=== PATIENT | female | born 1995 | race African-American/Black ===

== ENCOUNTER 2020-03-07 13:34 | Emergency (ER) | payer MEDICAID | END 2020-03-07 13:45 | disposition left against medical advice (07) | LOC: ER 13:34 | DX: S99.922A Unspecified injury of left foot, initial encounter (principal); Z53.21 Procedure and treatment not carried out due to patient leaving prior to being seen by health care provider; X58.XXXA Exposure to other specified factors, initial encounter; Y93.89 Activity, other specified; Y92.89 Other specified places as the place of occurrence of the external cause; Y99.8 Other external cause status ==

== ENCOUNTER 2022-05-18 05:56 | Inpatient (IN) | payer MEDICAID ==
[~2022-05-18] VITALS: Ht 154.9 cm; Wt 77.8 kg
[2022-05-18] VITALS (14 sets, daily range): BP systolic 92–122; BP diastolic 32–59
[2022-05-18 08:01] LABS: Basophils # (auto) 0 10 ^3/uL (0-0.2); Eosinophils # (auto) 0 10 ^3/uL (0-0.8); Hematocrit 10.2 % (36.0-46.0); Lymphocytes # (auto) 1.3 10 ^3/uL (0.4-5.4); Mean Corpuscular Hemoglobin 18.4 pg (28.0-32.0); Mean Corpuscular Volume 63.4 fL (80.0-100.0); Nucleated Red Blood Cells % 0.3 %; Red Blood Cells 1.61 10^6/uL (4.0-5.20)
[2022-05-18 08:04] LABS: Basophils % (auto) 0.9 % (0.0-2.0); Lymphocytes % (auto) 34.1 % (10.0-50.0); Monocytes # (auto) 0.4 10 ^3/uL (0-1.3); Monocytes % (auto) 9.3 % (0.0-12.0); Neutrophils # (auto) 2.2 10 ^3/uL (1.6-8.6); Neutrophils % (auto) 55.7 % (37.0-80.0); White Blood Cell 3.9 10^3/uL (4.4-10.8)
[2022-05-18 08:11] LABS: Red Cell Distribution Width 34.8 % (11.8-14.3)
[2022-05-18 08:18] LABS: Chloride 108 mmol/L (98-107); Potassium 3.5 mmol/L (3.5-5.1); Sodium 137 mmol/L (136-145)
[2022-05-18 08:22] LABS: Alanine Aminotransferase < 6 U/L (13-56); Albumin 3.4 g/dL (3.4-5.0); Anion Gap 10 (5-15); BUN/Creatinine Ratio 8.2; Blood Urea Nitrogen 5 mg/dL (7-18); Carbon Dioxide 19 mmol/L (21-32); GFR African American 152 mL/min; GFR Non-African American 126 mL/min; Glucose 97 mg/dL (74-106)
[2022-05-18 08:29] LABS: Alkaline Phosphatase 53 U/L (45-117); Aspartate Aminotransferase 5 U/L (15-37); Bilirubin, Total 1.1 mg/dL (0.2-1.0); Total Protein 6.7 g/dL (6.4-8.2)
[2022-05-18 09:59] LABS: Urine WBC None Seen /hpf (0 - 5)
[2022-05-18 10:22] LABS: Urine Bacteria NONE SEEN /hpf (None Seen); Urine Blood 3+ /uL (Negative); Urine Mucus FEW (None Seen); Urine Specific Gravity 1.008 (1.001-1.035)
[2022-05-18] MEDS ORDERED: DOCUSATE SOD 100 MG CAP PO PRN ×2 (11:15→13:00)
[2022-05-18] MEDS: FERROUS SULFATE 325mg EC TAB PO SCH ×2 (12:18→22:49)
[2022-05-18] MEDS ORDERED: POTASSIUM EFFERVESENT TAB 25 MEQ PO ONE (13:00)
[2022-05-18] MEDS ORDERED: ACETAMINOPHEN 325 MG TAB PO PRN (13:00)
[2022-05-18] MEDS: SODIUM CHLOR 0.9% PF (SALINE LOCK) 10ML VIAL/SYR IV SCH ×2 (14:06→22:59)
[2022-05-18 19:06] LABS: % Iron Saturation 92.3 % (15-50)
[2022-05-19 00:16] LABS: Hematocrit 20.5 % (36.0-46.0)
[2022-05-19 00:20] LABS: Hemoglobin 6.7 g/dL (12.2-16.2)
[2022-05-19 04:28] LABS: Basophils # (auto) 0 10 ^3/uL (0-0.2); Neutrophils # (auto) 1.7 10 ^3/uL (1.6-8.6); White Blood Cell 4.3 10^3/uL (4.4-10.8)
[2022-05-19 04:30] LABS: Basophils % (auto) 1.1 % (0.0-2.0); Eosinophils # (auto) 0 10 ^3/uL (0-0.8); Eosinophils % (auto) 0.6 % (0.0-7.0); Hematocrit 20.1 % (36.0-46.0); Lymphocytes # (auto) 2.2 10 ^3/uL (0.4-5.4); Lymphocytes % (auto) 51.2 % (10.0-50.0); Mean Corpuscular Hemoglobin 24.4 pg (28.0-32.0); Mean Corpuscular Hgb Conc. 32.4 g/dL (32.0-36.0); Mean Corpuscular Volume 75.3 fL (80.0-100.0); Monocytes # (auto) 0.3 10 ^3/uL (0-1.3); Monocytes % (auto) 7.3 % (0.0-12.0); Neutrophils % (auto) 39.8 % (37.0-80.0); Nucleated Red Blood Cells % 0.2 %; Red Blood Cells 2.67 10^6/uL (4.0-5.20)
[2022-05-19 04:43] LABS: % Iron Saturation 92.8 % (15-50)
[2022-05-19 04:50] LABS: Red Cell Distribution Width 30.4 % (11.8-14.3)
[2022-05-19 04:51] LABS: Hemoglobin 6.5 g/dL (12.2-16.2)
[2022-05-19 04:52] LABS: Potassium 3.8 mmol/L (3.5-5.1)
[2022-05-19 05:02] LABS: BUN/Creatinine Ratio 18.4; Bilirubin, Total 1.7 mg/dL (0.2-1.0); CRP High Sensitivity 1.11 mg/dL (< 0.3); Pre Albumin 11.9 mg/dL (20.0-40.0); Total Protein 6.1 g/dL (6.4-8.2)
[2022-05-19] MEDS: SODIUM CHLOR 0.9% PF (SALINE LOCK) 10ML VIAL/SYR IV SCH ×3 (06:34→22:08)
[2022-05-19 08:39] VITALS: BP 104/56
[2022-05-19 08:58] VITALS: BP 102/53
[2022-05-19 10:19] VITALS: BP 102/53
[2022-05-19 11:04] VITALS: BP 146/76
[2022-05-19 14:30] VITALS: BP 102/53
[2022-05-19 14:42] LABS: Basophils # (auto) 0.1 10 ^3/uL (0-0.2); Hemoglobin 8.7 g/dL (12.2-16.2); Lymphocytes # (auto) 0.8 10 ^3/uL (0.4-5.4); Nucleated Red Blood Cells % 0.1 %; Red Blood Cells 3.49 10^6/uL (4.0-5.20); White Blood Cell 7.2 10^3/uL (4.4-10.8)
[2022-05-19 14:44] LABS: Basophils % (auto) 0.8 % (0.0-2.0); Eosinophils # (auto) 0 10 ^3/uL (0-0.8); Eosinophils % (auto) 0.6 % (0.0-7.0); Hematocrit 27.2 % (36.0-46.0); Lymphocytes % (auto) 11.6 % (10.0-50.0); Monocytes # (auto) 0.5 10 ^3/uL (0-1.3); Monocytes % (auto) 6.3 % (0.0-12.0); Neutrophils # (auto) 5.8 10 ^3/uL (1.6-8.6); Neutrophils % (auto) 80.7 % (37.0-80.0)
[2022-05-19 14:55] LABS: Red Cell Distribution Width 28.9 % (11.8-14.3)
[2022-05-19] MEDS: methylPREDNISolone SOD SUCC 125 MG/2 ML VL IV SCH (18:26)
[2022-05-19 19:34] LABS: Ferritin 23.1 ng/mL (10-322)
[2022-05-19 22:00] VITALS: BP 144/64
[2022-05-20] MEDS: methylPREDNISolone SOD SUCC 125 MG/2 ML VL IV SCH ×4 (00:07→23:17)
[2022-05-20] MEDS: ONDANSETRON HCL 4 MG/2 ML VIAL IV PRN ×4 (00:07→23:16)
[2022-05-20 05:00] VITALS: BP 103/48
[2022-05-20] MEDS: SODIUM CHLOR 0.9% PF (SALINE LOCK) 10ML VIAL/SYR IV SCH ×3 (06:24→21:13)
[2022-05-20 09:00] VITALS: BP 106/61
[2022-05-20 09:30] LABS: Folate (Folic Acid) 5.24 ng/mL (5.38-24)
[2022-05-20] MEDS ORDERED: ZOLPIDEM TARTRATE 5 MG TAB PO PRN (12:30)
[2022-05-20] MEDS ORDERED: PANTOPRAZOLE 40 MG/10 ML VIAL INJ IV ONE (12:30)
[2022-05-20 12:46] LABS: Hepatitis A Ab IgM Negative; Hepatitis B Core IgM Negative; Hepatitis C Antibody Negative (Negative)
[2022-05-20 13:00] VITALS: BP 117/58
[2022-05-20 16:38] VITALS: BP 113/42
[2022-05-20 22:00] VITALS: BP 120/67
[2022-05-21 05:00] VITALS: BP 101/58
[2022-05-21 05:05] LABS: Basophils # (auto) 0 10 ^3/uL (0-0.2); Eosinophils # (auto) 0 10 ^3/uL (0-0.8); Hemoglobin 7.8 g/dL (12.2-16.2); Lymphocytes # (auto) 0.2 10 ^3/uL (0.4-5.4); White Blood Cell 9.5 10^3/uL (4.4-10.8)
[2022-05-21 05:07] LABS: Basophils % (auto) 0.1 % (0.0-2.0); Hematocrit 24.1 % (36.0-46.0); Mean Corpuscular Hemoglobin 25.8 pg (28.0-32.0); Mean Corpuscular Hgb Conc. 32.2 g/dL (32.0-36.0); Mean Corpuscular Volume 80.2 fL (80.0-100.0); Monocytes # (auto) 0.4 10 ^3/uL (0-1.3); Monocytes % (auto) 3.9 % (0.0-12.0); Neutrophils # (auto) 8.9 10 ^3/uL (1.6-8.6); Red Blood Cells 3.01 10^6/uL (4.0-5.20)
[2022-05-21 05:19] LABS: INR 1.13 (0.9-1.15); Partial Thromboplastin Time 24.2 sec (24.6-33.4)
[2022-05-21] MEDS: SODIUM CHLOR 0.9% PF (SALINE LOCK) 10ML VIAL/SYR IV SCH ×3 (05:25→23:44)
[2022-05-21] MEDS: methylPREDNISolone SOD SUCC 125 MG/2 ML VL IV SCH ×4 (05:25→23:44)
[2022-05-21 05:26] LABS: BUN/Creatinine Ratio 12.5; Calcium 8.9 mg/dL (8.5-10.1); Potassium 4.3 mmol/L (3.5-5.1); Red Cell Distribution Width 27.9 % (11.8-14.3)
[2022-05-21 09:05] VITALS: BP 106/57
[2022-05-21] MEDS: PANTOPRAZOLE 40 MG/10 ML VIAL INJ IV SCH (09:50)
[2022-05-21 16:27] VITALS: BP 108/43
[2022-05-21 22:00] VITALS: BP 122/78
[2022-05-22 05:00] VITALS: BP_SYST 106; BP_SYST 117; BP_DIAS 57; BP_DIAS 63
[2022-05-22 05:10] LABS: Basophils # (auto) 0 10 ^3/uL (0-0.2); Eosinophils # (auto) 0 10 ^3/uL (0-0.8); Lymphocytes # (auto) 0.3 10 ^3/uL (0.4-5.4); Monocytes # (auto) 0.4 10 ^3/uL (0-1.3); Nucleated Red Blood Cells % 0.1 %
[2022-05-22 05:16] LABS: Basophils % (auto) 0.2 % (0.0-2.0); Hematocrit 25.2 % (36.0-46.0); Hemoglobin 8.2 g/dL (12.2-16.2); Lymphocytes % (auto) 3.3 % (10.0-50.0); Mean Corpuscular Hemoglobin 25.7 pg (28.0-32.0); Mean Corpuscular Hgb Conc. 32.4 g/dL (32.0-36.0); Mean Corpuscular Volume 79.3 fL (80.0-100.0); Monocytes % (auto) 4.1 % (0.0-12.0); Neutrophils # (auto) 8.8 10 ^3/uL (1.6-8.6); Neutrophils % (auto) 92.4 % (37.0-80.0); Red Blood Cells 3.18 10^6/uL (4.0-5.20); White Blood Cell 9.6 10^3/uL (4.4-10.8)
[2022-05-22 05:19] LABS: Red Cell Distribution Width 29.6 % (11.8-14.3)
[2022-05-22] MEDS: methylPREDNISolone SOD SUCC 125 MG/2 ML VL IV SCH (05:52)
[2022-05-22] MEDS: SODIUM CHLOR 0.9% PF (SALINE LOCK) 10ML VIAL/SYR IV SCH ×3 (05:52→21:34)
[2022-05-22 09:19] VITALS: BP 109/59
[2022-05-22] MEDS: PANTOPRAZOLE 40 MG/10 ML VIAL INJ IV SCH (09:40)
[2022-05-22 13:00] VITALS: BP 108/58
[2022-05-22] MEDS: predniSONE 20 MG TAB PO SCH ×2 (14:00→21:34)
[2022-05-22 16:30] VITALS: BP 110/66
[2022-05-22 22:00] VITALS: BP 118/67
[2022-05-23 05:00] VITALS: BP 127/67
[2022-05-23 05:27] LABS: Basophils # (auto) 0 10 ^3/uL (0-0.2); Eosinophils # (auto) 0 10 ^3/uL (0-0.8); Hemoglobin 8.7 g/dL (12.2-16.2); Monocytes # (auto) 0.5 10 ^3/uL (0-1.3); Nucleated Red Blood Cells % 0.2 %
[2022-05-23 05:29] LABS: Basophils % (auto) 0.3 % (0.0-2.0); Lymphocytes # (auto) 1.1 10 ^3/uL (0.4-5.4); Lymphocytes % (auto) 9.6 % (10.0-50.0); Mean Corpuscular Hemoglobin 25.2 pg (28.0-32.0); Mean Corpuscular Volume 78.9 fL (80.0-100.0); Monocytes % (auto) 4.4 % (0.0-12.0); Neutrophils # (auto) 9.7 10 ^3/uL (1.6-8.6); Neutrophils % (auto) 85.7 % (37.0-80.0); Red Blood Cells 3.43 10^6/uL (4.0-5.20); White Blood Cell 11.3 10^3/uL (4.4-10.8)
[2022-05-23] MEDS: SODIUM CHLOR 0.9% PF (SALINE LOCK) 10ML VIAL/SYR IV SCH ×3 (06:18→22:00)
[2022-05-23] MEDS: predniSONE 20 MG TAB PO SCH (06:18)
[2022-05-23] MEDS ORDERED: HYDROmorphone HCL 2 MG/ML VL/or syr IV PRN (08:45)
[2022-05-23] MEDS ORDERED: HYDROmorphone HCL 2 MG/ML VL/or syr IV ONE (09:00)
[2022-05-23 09:20] VITALS: BP 112/57
[2022-05-23] MEDS: PANTOPRAZOLE 40 MG TAB PO SCH (10:00)
[2022-05-23] MEDS ORDERED: ACETAMINOPHEN 325 MG TAB PO PRN (11:00)
[2022-05-23] MEDS: methylPREDNISolone SOD SUCC 125 MG/2 ML VL IV SCH ×2 (12:16→17:55)
[2022-05-23] MEDS: IMMUNE GLOBULIN 10% IV SCH (12:18)
[2022-05-23 16:25] VITALS: BP 113/67
[2022-05-24 00:18] VITALS: BP 103/47
[2022-05-24] MEDS: methylPREDNISolone SOD SUCC 125 MG/2 ML VL IV SCH ×3 (00:22→12:00)
[2022-05-24 05:46] VITALS: BP 145/65
[2022-05-24] MEDS: SODIUM CHLOR 0.9% PF (SALINE LOCK) 10ML VIAL/SYR IV SCH ×2 (06:42→14:00)
[2022-05-24] MEDS: IMMUNE GLOBULIN 10% IV SCH (06:44)
[2022-05-24 08:30] VITALS: BP 114/66
[2022-05-24] MEDS: PANTOPRAZOLE 40 MG TAB PO SCH (10:35)
[2022-05-24 12:53] VITALS: BP 109/63
== END 2022-05-24 17:33 | disposition left against medical advice (07) | DRG 663 ==
LOC: ER 05:56 → TELE-WESTW 13:06 → WEST WING 05-21 00:46
PROVIDERS: ADMIT Internal Medicine; ATTEND Internal Medicine
PROC: 30233N1 Transfusion of Nonautologous Red Blood Cells into Peripheral Vein, Percutaneous Approach (ICD-10-PCS; principal; 2022-05-18)
DX: D50.9 Iron deficiency anemia, unspecified (principal); D69.3 Immune thrombocytopenic purpura; N92.0 Excessive and frequent menstruation with regular cycle; Z20.822 Contact with and (suspected) exposure to COVID-19; R50.9 Fever, unspecified; Z53.29 Procedure and treatment not carried out because of patient's decision for other reasons; Z91.19 Patient's noncompliance with other medical treatment and regimen
CPT/HCPCS: 36415; 76700; 76856; 80048; 80053; 80074; 81001; 82040; 82607; 82668; 82728; 82746; 83010; 83540; 83550; 83615; 84439; 84443; 84702; 85014; 85018; 85025; 85045; 85246; 85610; 85652; 85730; 86038; 86141; 86850; 86880; 86900; 86901; 86920; 93306; 99291; C9113; G0378; J1561; J2405

== ENCOUNTER 2023-02-07 18:07 | Inpatient (IN) | payer MEDICAID ==
[~2023-02-07] VITALS: Ht 154.9 cm; Wt 60.0 kg
[2023-02-07 19:32] LABS: Hematocrit 10.9 % (36.0-46.0); Mean Corpuscular Hgb Conc. 28.7 g/dL (32.0-36.0); Red Blood Cells 1.79 10^6/uL (4.0-5.20)
[2023-02-07 19:34] LABS: Mean Corpuscular Hemoglobin 17.4 pg (28.0-32.0); Mean Corpuscular Volume 60.8 fL (80.0-100.0)
[2023-02-07 19:42] LABS: Red Cell Distribution Width 30.5 % (11.8-14.3)
[2023-02-07 19:43] LABS: Albumin 3.7 g/dL (3.4-5.0); BUN/Creatinine Ratio 9.1 (10.0-20.0); Calcium 8.7 mg/dL (8.5-10.1); Potassium 3.2 mmol/L (3.5-5.1)
[2023-02-07 19:46] LABS: Hemoglobin 3.1 g/dL (12.2-16.2); Total Protein 7.2 g/dL (6.4-8.2)
[2023-02-07 19:48] LABS: Band Neutrophils % (manual) 0; Basophils % (manual) 0 (0.0-2.0); Blast Cells 0; Eosinophils % (manual) 0 (0-7); Metamyelocytes % 0; Myelocytes % 0; Promyelocytes % 0; Reactive Lymphocytes 0
[2023-02-07] MEDS ORDERED: DOCUSATE SOD 100 MG CAP PO PRN (21:30)
[2023-02-07] MEDS ORDERED: ONDANSETRON HCL 4 MG/2 ML VIAL IV PRN (21:30)
[2023-02-07] MEDS ORDERED: POTASSIUM CHL 20 Meq TABLET PO ONE (21:30)
[2023-02-07 21:41] LABS: Lymphocytes % (manual) 10 (10.0-50.0); Monocytes % (manual) 4 (0-12)
[2023-02-07] MEDS: SODIUM CHLORIDE 0.9% 1,000 ML IV SCH (22:00)
[2023-02-07] MEDS ORDERED: NITROGLYCERIN 0.4 MG SL TAB SL PRN (23:30)
[2023-02-07] MEDS ORDERED: MORPHINE SULFATE INJ 2 MG/ml SYRG IV PRN (23:30)
[2023-02-08] VITALS (14 sets, daily range): BP systolic 96–129; BP diastolic 32–82
[2023-02-08 04:18] LABS: Basophils # (auto) 0 10 ^3/uL (0-0.2); Eosinophils # (auto) 0 10 ^3/uL (0-0.8); Eosinophils % (auto) 0.1 % (0.0-7.0); Hematocrit 13.7 % (36.0-46.0); Mean Corpuscular Hemoglobin 21.7 pg (28.0-32.0); Mean Corpuscular Hgb Conc. 31.1 g/dL (32.0-36.0); Mean Corpuscular Volume 69.7 fL (80.0-100.0); Monocytes # (auto) 0.6 10 ^3/uL (0-1.3); Nucleated Red Blood Cells % 0.2 %; Red Blood Cells 1.97 10^6/uL (4.0-5.20)
[2023-02-08 04:21] LABS: Basophils % (auto) 0.5 % (0.0-2.0); Lymphocytes # (auto) 1.4 10 ^3/uL (0.4-5.4); Monocytes % (auto) 8.7 % (0.0-12.0); Neutrophils # (auto) 4.8 10 ^3/uL (1.6-8.6); Neutrophils % (auto) 70.7 % (37.0-80.0); White Blood Cell 6.8 10^3/uL (4.4-10.8)
[2023-02-08 04:34] LABS: Albumin 3.3 g/dL (3.4-5.0); Anion Gap 6 (5-15); Blood Urea Nitrogen 8 mg/dL (7-18); Calcium 8.3 mg/dL (8.5-10.1); Carbon Dioxide 18 mmol/L (21-32); Chloride 114 mmol/L (98-107); Glucose 89 mg/dL (74-106); Potassium 3.3 mmol/L (3.5-5.1); Sodium 138 mmol/L (136-145)
[2023-02-08 04:39] LABS: Alanine Aminotransferase < 6 U/L (13-56); Alkaline Phosphatase 69 U/L (45-117); Aspartate Aminotransferase 6 U/L (15-37); BUN/Creatinine Ratio 10.7 (10.0-20.0); Bilirubin, Total 1.3 mg/dL (0.2-1.0); GFR African American 119 mL/min; GFR Non-African American 99 mL/min; Total Protein 6.4 g/dL (6.4-8.2)
[2023-02-08 06:01] LABS: Red Cell Distribution Width 35.5 % (11.8-14.3)
[2023-02-08 06:04] LABS: Hemoglobin 4.3 g/dL (12.2-16.2)
[2023-02-08] MEDS ORDERED: POTASSIUM CHL 20 Meq TABLET PO ONE (10:15)
[2023-02-08 10:43] LABS: Eosinophils # (auto) 0 10 ^3/uL (0-0.8); Nucleated Red Blood Cells % 0.1 %; Red Blood Cells 2.62 10^6/uL (4.0-5.20)
[2023-02-08] MEDS ORDERED: DOCUSATE SOD 100 MG CAP PO PRN (10:45)
[2023-02-08 10:46] LABS: Basophils # (auto) 0 10 ^3/uL (0-0.2); Basophils % (auto) 0.4 % (0.0-2.0); Eosinophils % (auto) 0.3 % (0.0-7.0); Hematocrit 19.4 % (36.0-46.0); Lymphocytes # (auto) 1.1 10 ^3/uL (0.4-5.4); Lymphocytes % (auto) 14.4 % (10.0-50.0); Mean Corpuscular Hemoglobin 23.6 pg (28.0-32.0); Mean Corpuscular Hgb Conc. 31.7 g/dL (32.0-36.0); Mean Corpuscular Volume 74.3 fL (80.0-100.0); Monocytes # (auto) 0.7 10 ^3/uL (0-1.3); Monocytes % (auto) 8.9 % (0.0-12.0); Neutrophils # (auto) 5.9 10 ^3/uL (1.6-8.6); White Blood Cell 7.8 10^3/uL (4.4-10.8)
[2023-02-08 11:14] LABS: Red Cell Distribution Width 32.9 % (11.8-14.3)
[2023-02-08 11:27] LABS: Hemoglobin 6.2 g/dL (12.2-16.2)
[2023-02-08 12:33] LABS: Urine Bacteria FEW /hpf (None Seen); Urine Blood 3+ /uL (Negative); Urine Hyaline Cast FEW /lpf (0 - 2); Urine WBC 25 /hpf (0 - 5)
[2023-02-08] MEDS: HYDROcodone-ACET 5/325MG TAB PO PRN ×3 (12:35→22:51)
[2023-02-08 14:12] LABS: Albumin 3.3 g/dL (3.4-5.0); Calcium 8.6 mg/dL (8.5-10.1); Potassium 3.8 mmol/L (3.5-5.1)
[2023-02-08] MEDS: SODIUM CHLORIDE 0.9% 1,000 ML IV SCH (14:16)
[2023-02-08 14:22] LABS: BUN/Creatinine Ratio 9.1 (10.0-20.0); Bilirubin, Total 1.9 mg/dL (0.2-1.0); CRP High Sensitivity 7.67 mg/dL (< 0.3); Ferritin 32.4 ng/mL (10-322); Pre Albumin 14.3 mg/dL (20.0-40.0); Total Protein 6.7 g/dL (6.4-8.2)
[2023-02-08 14:27] LABS: Thyroid Stimulating Hormone 1.52 uIU/mL (0.358-3.74)
[2023-02-08] MEDS ORDERED: FUROSEMIDE 20 MG/2 ML VIAL IV ONE (14:45)
[2023-02-08] MEDS: FERROUS SULFATE 325mg EC TAB PO SCH (18:09)
[2023-02-08] MEDS: methylPREDNISolone SOD SUCC 125 MG/2 ML VL IV SCH (20:32)
[2023-02-08 21:37] LABS: Albumin 3.5 g/dL (3.4-5.0); BUN/Creatinine Ratio 10.4 (10.0-20.0); Calcium 8.7 mg/dL (8.5-10.1); Potassium 3.8 mmol/L (3.5-5.1)
[2023-02-08 21:40] LABS: Bilirubin, Total 1.7 mg/dL (0.2-1.0); Total Protein 7.2 g/dL (6.4-8.2)
[2023-02-08 22:20] LABS: Basophils % (auto) 0.4 % (0.0-2.0); Eosinophils % (auto) 0.3 % (0.0-7.0); Lymphocytes # (auto) 1.6 10 ^3/uL (0.4-5.4); Lymphocytes % (auto) 16.4 % (10.0-50.0); Monocytes % (auto) 8.2 % (0.0-12.0); Neutrophils # (auto) 7.1 10 ^3/uL (1.6-8.6); Neutrophils % (auto) 74.7 % (37.0-80.0); White Blood Cell 9.6 10^3/uL (4.4-10.8)
[2023-02-08 22:21] LABS: Basophils # (auto) 0 10 ^3/uL (0-0.2); Eosinophils # (auto) 0 10 ^3/uL (0-0.8); Hematocrit 28.2 % (36.0-46.0); Hemoglobin 9.2 g/dL (12.2-16.2); Mean Corpuscular Hemoglobin 25.6 pg (28.0-32.0); Mean Corpuscular Hgb Conc. 32.7 g/dL (32.0-36.0); Mean Corpuscular Volume 78.2 fL (80.0-100.0); Monocytes # (auto) 0.8 10 ^3/uL (0-1.3); Red Cell Distribution Width 27.6 % (11.8-14.3)
[2023-02-09] MEDS: methylPREDNISolone SOD SUCC 125 MG/2 ML VL IV SCH ×4 (01:24→18:10)
[2023-02-09 05:00] VITALS: BP 106/60
[2023-02-09 05:22] LABS: Basophils # (auto) 0 10 ^3/uL (0-0.2); Eosinophils # (auto) 0 10 ^3/uL (0-0.8); Lymphocytes # (auto) 0.4 10 ^3/uL (0.4-5.4); Monocytes # (auto) 0.1 10 ^3/uL (0-1.3); White Blood Cell 10.8 10^3/uL (4.4-10.8)
[2023-02-09 05:25] LABS: Basophils % (auto) 0.1 % (0.0-2.0); Hematocrit 30.1 % (36.0-46.0); Hemoglobin 9.9 g/dL (12.2-16.2); Lymphocytes % (auto) 3.5 % (10.0-50.0); Mean Corpuscular Hemoglobin 25.6 pg (28.0-32.0); Mean Corpuscular Volume 77.7 fL (80.0-100.0); Monocytes % (auto) 0.7 % (0.0-12.0); Neutrophils # (auto) 10.3 10 ^3/uL (1.6-8.6); Neutrophils % (auto) 95.7 % (37.0-80.0); Nucleated Red Blood Cells % 0.1 %; Red Blood Cells 3.88 10^6/uL (4.0-5.20)
[2023-02-09 05:52] LABS: BUN/Creatinine Ratio 12.6 (10.0-20.0); Calcium 9.1 mg/dL (8.5-10.1); Potassium 4.3 mmol/L (3.5-5.1)
[2023-02-09 05:55] LABS: Red Cell Distribution Width 28.1 % (11.8-14.3)
[2023-02-09] MEDS: SODIUM CHLORIDE 0.9% 1,000 ML IV SCH ×2 (06:33→23:30)
[2023-02-09] MEDS: ACETAMINOPHEN 325 MG TAB PO PRN ×2 (06:46→16:35)
[2023-02-09 08:00] VITALS: BP 113/62
[2023-02-09] MEDS: FERROUS SULFATE 325mg EC TAB PO SCH ×2 (08:37→18:10)
[2023-02-09 08:45] LABS: Free T4 (Free Thyroxine) 1.08 ng/dL (0.89-1.76)
[2023-02-09 09:00] VITALS: BP 113/62
[2023-02-09] MEDS: FUROSEMIDE 20 MG/2 ML VIAL IV SCH (10:20)
[2023-02-09 13:00] VITALS: BP 114/62
[2023-02-09 17:00] VITALS: BP 113/59
[2023-02-09 17:21] LABS: Folate (Folic Acid) 8.08 ng/mL (5.38-24)
[2023-02-09 21:51] VITALS: BP 124/68
[2023-02-09] MEDS: HYDROcodone-ACET 5/325MG TAB PO PRN (21:58)
[2023-02-10] VITALS (7 sets, daily range): BP systolic 108–133; BP diastolic 57–72
[2023-02-10] MEDS: methylPREDNISolone SOD SUCC 125 MG/2 ML VL IV SCH ×4 (00:33→18:04)
[2023-02-10] MEDS: ACETAMINOPHEN 325 MG TAB PO PRN ×2 (03:08→09:58)
[2023-02-10 05:50] LABS: Basophils # (auto) 0 10 ^3/uL (0-0.2); Basophils % (auto) 0.1 % (0.0-2.0); Eosinophils # (auto) 0 10 ^3/uL (0-0.8); Lymphocytes # (auto) 0.4 10 ^3/uL (0.4-5.4); Mean Corpuscular Volume 78.9 fL (80.0-100.0); Monocytes # (auto) 0.2 10 ^3/uL (0-1.3); Nucleated Red Blood Cells % 0.1 %
[2023-02-10 05:53] LABS: Hematocrit 27.5 % (36.0-46.0); Hemoglobin 9.1 g/dL (12.2-16.2); Lymphocytes % (auto) 3.9 % (10.0-50.0); Neutrophils # (auto) 9.5 10 ^3/uL (1.6-8.6); Red Blood Cells 3.48 10^6/uL (4.0-5.20); White Blood Cell 10.1 10^3/uL (4.4-10.8)
[2023-02-10 06:03] LABS: Red Cell Distribution Width 28.4 % (11.8-14.3)
[2023-02-10 06:08] LABS: BUN/Creatinine Ratio 18.3 (10.0-20.0); Calcium 8.9 mg/dL (8.5-10.1); Potassium 4.4 mmol/L (3.5-5.1)
[2023-02-10] MEDS: FERROUS SULFATE 325mg EC TAB PO SCH ×2 (08:22→18:00)
[2023-02-10] MEDS: FUROSEMIDE 20 MG/2 ML VIAL IV SCH (09:55)
[2023-02-10 10:43] LABS: INR 1.07 (0.9-1.15); Partial Thromboplastin Time 25.3 sec (24.6-33.4)
[2023-02-10] MEDS: HYDROcodone-ACET 5/325MG TAB PO PRN ×2 (12:26→20:27)
[2023-02-10] MEDS: SODIUM CHLORIDE 0.9% 1,000 ML IV SCH ×2 (18:04→21:58)
[2023-02-11] MEDS: methylPREDNISolone SOD SUCC 125 MG/2 ML VL IV SCH ×4 (00:17→18:19)
[2023-02-11] MEDS: HYDROcodone-ACET 5/325MG TAB PO PRN (03:03)
[2023-02-11 05:47] VITALS: BP 124/64
[2023-02-11 07:08] LABS: Basophils # (auto) 0 10 ^3/uL (0-0.2); Basophils % (auto) 0.3 % (0.0-2.0); Eosinophils # (auto) 0 10 ^3/uL (0-0.8); Hemoglobin 9.3 g/dL (12.2-16.2); Monocytes # (auto) 0.2 10 ^3/uL (0-1.3); Red Blood Cells 3.53 10^6/uL (4.0-5.20)
[2023-02-11 07:10] LABS: Hematocrit 27.2 % (36.0-46.0); Lymphocytes # (auto) 0.6 10 ^3/uL (0.4-5.4); Lymphocytes % (auto) 6.8 % (10.0-50.0); Mean Corpuscular Hemoglobin 26.5 pg (28.0-32.0); Mean Corpuscular Hgb Conc. 34.3 g/dL (32.0-36.0); Mean Corpuscular Volume 77.2 fL (80.0-100.0); Neutrophils # (auto) 8.4 10 ^3/uL (1.6-8.6); Neutrophils % (auto) 90.9 % (37.0-80.0); White Blood Cell 9.3 10^3/uL (4.4-10.8)
[2023-02-11 07:21] LABS: Potassium 4.2 mmol/L (3.5-5.1)
[2023-02-11 07:25] LABS: BUN/Creatinine Ratio 25.7 (10.0-20.0); Calcium 8.9 mg/dL (8.5-10.1)
[2023-02-11] MEDS ORDERED: LIDOCAINE 2%HCL (LOCAL ANESTH.) INJ 10ml MDV ONE (07:42)
[2023-02-11 08:00] VITALS: BP 112/63
[2023-02-11] MEDS ORDERED: MIDAZOLAM HCL 2MG/2ML 2ml VIAL (1mg/ml) IV ONE (08:00)
[2023-02-11] MEDS ORDERED: fentaNYL CITRATE 100 MCG/2 ML VL IV ONE (08:00)
[2023-02-11] MEDS ORDERED: MIDAZOLAM HCL 2MG/2ML 2ml VIAL (1mg/ml) ONE (08:13)
[2023-02-11] MEDS ORDERED: fentaNYL CITRATE 100 MCG/2 ML VL ONE (08:13)
[2023-02-11 08:33] LABS: Red Cell Distribution Width 29.2 % (11.8-14.3)
[2023-02-11 09:00] VITALS: BP 112/63
[2023-02-11] MEDS: FERROUS SULFATE 325mg EC TAB PO SCH ×2 (09:39→18:19)
[2023-02-11] MEDS: FUROSEMIDE 20 MG/2 ML VIAL IV SCH (09:39)
[2023-02-11] MEDS: ACETAMINOPHEN 325 MG TAB PO PRN ×2 (10:35→18:20)
[2023-02-11 12:48] VITALS: BP 113/68
[2023-02-11] MEDS: SODIUM CHLORIDE 0.9% 1,000 ML IV SCH (15:07)
[2023-02-11 16:47] VITALS: BP 114/57
[2023-02-11] MEDS ORDERED: FER325T PO (16:50)
[2023-02-11] MEDS ORDERED: PRED20TA2 PO ×3 (16:50→17:30)
[2023-02-11 19:05] VITALS: BP 114/57
== END 2023-02-11 19:51 | disposition home or self-care (01) | DRG 532 ==
LOC: ER 18:07 → TELE 23:27 → TELE-EAST 02-08 21:20
PROVIDERS: ADMIT Nurse Practitioner Family; ATTEND Internal Medicine
PROC: 30233N1 Transfusion of Nonautologous Red Blood Cells into Peripheral Vein, Percutaneous Approach (ICD-10-PCS; principal; 2023-02-08)
PROC: 07DR3ZX Extraction of Iliac Bone Marrow, Percutaneous Approach, Diagnostic (ICD-10-PCS; 2023-02-11)
DX: N92.0 Excessive and frequent menstruation with regular cycle (principal); D69.3 Immune thrombocytopenic purpura; D50.9 Iron deficiency anemia, unspecified; N93.9 Abnormal uterine and vaginal bleeding, unspecified; E87.6 Hypokalemia; I48.91 Unspecified atrial fibrillation; Z20.822 Contact with and (suspected) exposure to COVID-19
CPT/HCPCS: 10005; 36415; 72192; 77012; 80048; 80053; 81001; 82040; 82607; 82668; 82728; 82746; 83010; 83540; 83550; 83615; 84439; 84443; 84702; 85007; 85025; 85027; 85045; 85610; 85652; 85730; 86141; 86431; 86850; 86880; 86900; 86901; 86920; 87426; 96361; 96374; 96375; G0378; J2001; J2250; J2405